=== PATIENT | female | born 1960 | race Caucasian/White ===

== ENCOUNTER 2020-05-02 13:02 | Observation (INO) | payer OTHER, SELFPAY ==
[2020-05-02] VITALS (20 sets, daily range): BP systolic 131–208; BP diastolic 72–87; PULSE 13–98; RESP 14–25; TEMP 36.5–37.3; O2SAT 83–100; BMI 49.8; BMI 51.0
--- NOTE | 2020-05-02 | PATH_ITS ---
[facility] Accession Number: [id number] . 01 Material submitted: . gallbladder - GALLBLADDER AND CONTENTS . 02 Diagnosis: Gallbladder and Contents, Cholecystectomy: Cholelithiasis with chronic active cholecystitis. No evidence of neoplasm. MRV 05/06/2020 1020 Local . 02 Electronically signed: . Ulysses May MD, PhD, Pathologist NPI- [id number] . 01 Gross description: . The specimen is received in formalin, labeled gallbladder and contents and consists of a 12.0 x 5.0 x 4.0 cm intact gallbladder with a 0.4 cm in diameter cystic duct. The serosa is andrea-pink, focally hemorrhagic and smooth. Opening reveals green viscous bile with multiple andrea-yellow irregular to multifaceted choleliths, ranging from 0.1 to 1.8 cm and measuring 6.0 x 4.0 x 2.0 cm in aggregate. Multiple choleliths are firmly lodged within the neck of the specimen, occluding the cystic duct. The mucosa is andrea-pink and ragged to granular. The wall thickness measures up to 0.6 cm. [employer] Consultant sections are submitted, to include the en face cystic duct margin (blue), body and fundus in cassette A1. ([id number]) /[facility] 05/04/2020 1656 Local . 02 Pathologist provided ICD-10: K80.01 . 02 CPT . 310672 Performed at: 01 [facility] [address] [place] [address], [place], [place] [id number] MD Everardo Raya MD Phone: [phone] Performed at: 02 [facility] [address] [place], [place] [id number] MD Elisa Phillips MD Phone: [phone]
--- NOTE | 2020-05-02 13:10 | PC.NURSE ---
Provider aware of HR.
--- NOTE | 2020-05-02 13:40 | ED_ITS ---
HPI - Abdominal Pain General Chief Complaint: Abdominal Pain Stated Complaint: Gall Bladder Attack, Nausea, Vomiting Time Seen by Provider: 05/02/20 13:20 Source: patient Mode of arrival: Wheelchair Limitations: no limitations History of Present Illness HPI narrative: 60-year-old female nonsmoker with history of hypertension and hypothyroidism presents with her significant other in the chief complaint of severe epigastric pain since yesterday afternoon. She denies any obvious provocation or palliation but states it feels quite similar to a prior exacerbation of gallbladder disease. She tried eating breakfast at about 7:00 a.m. but has had nothing to eat or drink since. She is nauseated but denies any vomiting. She has had no fever chills. MD complaint: abdominal pain Onset (ago): hour(s) Pain Consistency: constant Location: epigastric Severity: moderate Quality: cramping and aching Radiation: none Migration to: no migration Relieving factors: nothing Exacerbating factors: nothing Associated symptoms: denies other symptoms Related Data Home Medications Medication Instructions Recorded Confirmed levothyroxine 100 mcg PO QAM #0 tab 02/16/16 05/02/20 Respironics REMstar Auto CPAP #1 ea 07/30/18 02/28/20 lisinopril 20 1 tab PO DAILY 02/28/20 05/02/20 mg-hydrochlorothiazide 12.5 mg tablet Allergies Allergy/AdvReac Type Severity Reaction Status Date / Time No Known Drug Allergies Allergy Verified 05/02/20 14:43 Review of Systems Constitutional Constitutional: Denies chills, Denies fatigue, Denies fever(s), Denies frequent falls, Denies lethargy and Denies weakness Eyes Eyes: Denies change in vision, Denies eye discharge, Denies irritation and Denies loss of vision ENT Ears, Nose, Mouth, and Throat: Denies change in voice, Denies dizziness, Denies neck pain, Denies sore throat and Denies throat swelling Cardiovascular Cardiovascular: Denies chest pain, Denies irregular heart rhythm, Denies lightheadedness, Denies palpitations, Denies dyspnea, Denies dyspnea on exertion and Denies orthopnea Respiratory Respiratory: Denies cough, Denies dyspnea, Denies dyspnea on exertion and Denies wheezing Gastrointestinal Gastrointestinal: Reports abdominal pain, Denies change in bowel habits, Denies diarrhea, Reports nausea and Denies vomiting Musculoskeletal Musculoskeletal: Denies neck pain and Denies numbness Integumentary/Breasts Skin/Breast: Denies pruritus, Denies erythema, Denies rash and Denies wounds Neurologic Neurologic: Denies behavioral changes, Denies confusion, Denies dizziness, Denies frequent falls, Denies loss of vision, Denies numbness and Denies weakness Psychiatric Psychiatric: Denies anxiety, Denies behavioral changes, Denies confusion, Denies depression, Denies homicidal ideation and Denies suicidal ideation Endocrine Endocrine: Denies fatigue, Denies flushing and Denies palpitations Hematologic/Lymphatic Hematologic/Lymphatic: Denies easy bruising Allergic/Immunologic Allergic/Immunologic: Denies urticaria, Denies throat swelling and Denies wheezing Patient History Medical History (Updated 05/02/20 @ 16:07 by Ike Howell DO) Fatigue (Chronic) Hyperlipidemia (Chronic) Insomnia (Chronic) Morbid obesity with body mass index (BMI) of 50.0 to 59.9 in adult (Chronic) Obstructive sleep apnea (Chronic) Social History (Updated 08/05/18 @ 18:11 by GARTH Isabel) marital status: details: birdie Gann, lives in [place] household members: spouse lives independently: Yes caregiver/support person: No housing: house Smoking Status: Never smoker Smoking Status: Never smoker alcohol intake frequency: 0-2 drinks per day Substance Use Type: does not use Exam Narrative Exam Narrative: GENERAL: [60] year old patient appears stated age. Well- nourished, well-developed patient, in mild distress. HEAD: Atraumatic. Normocephalic. EYES: Pupils equal round and reactive. Extraocular motions intact. No scleral icterus. No injection or drainage. ENT: Nose without bleeding, purulent drainage. Throat without erythema, tonsillar hypertrophy or exudate. Airway patent. NECK: Trachea midline. Non tender CARDIOVASCULAR: Regular rate and rhythm without murmurs, gallops, or rubs. RESPIRATORY: Clear to auscultation. Breath sounds equal bilaterally. No wheezes, rales, or rhonchi. GASTROINTESTINAL: Abdomen soft, epigastric and right upper quadrant tenderness to palpation, nondistended. EXTREMITIES: No edema or joint tenderness. BACK: Nontender without deformity or crepitance. No flank tenderness. NEURO: AOx3. SKIN: No rash or erythema of visible areas Initial Vital Signs Initial Vital Signs: Vital Signs Temperature 99.2 F 05/02/20 13:17 Pulse Rate 88 05/02/20 13:17 Respiratory Rate 18 05/02/20 13:17 Blood Pressure 208/81 H 05/02/20 13:17 Pulse Oximetry 98 05/02/20 13:17 Course Orders Ordered: ED Orders 05/02/20 13:23 EKG-12 Lead Stat 05/02/20 13:46 Complete Blood Count AUTO DIFF Stat Comprehensive Metabolic Panel Stat Lipase Stat Partial Thromboplastin Time Stat Prothrombin Time INR Stat 05/02/20 13:48 US abdomen limited Stat 05/02/20 15:00 COVID19 -ED/INPAT/OR/L&D Stat Lactated Ringer's (Lactated Ringers) 1,000 mls @ 150 mls/hr IV CONT SEVERIANO Last Admin: 05/02/20 14:05 Dose: 150 mls/hr Documented by: CHAPO Piperacillin/Tazobactam/Dextrose (Zosyn) 3.375 gm in 50 mls @ 100 mls/hr IV NOW ONE Stop: 05/02/20 16:06 Last Admin: 05/02/20 16:01 Dose: 100 mls/hr Documented by: CHAPO Discontinued Medications Hydromorphone HCl (Dilaudid) 0.5 mg IV NOW ONE Stop: 05/02/20 13:51 Last Admin: 05/02/20 14:08 Dose: 0.5 mg Documented by: CHAPO Ondansetron HCl (Zofran) 4 mg IV NOW ONE Stop: 05/02/20 13:51 Last Admin: 05/02/20 14:08 Dose: 4 mg Documented by: CHAPO Pantoprazole Sodium (Protonix) 40 mg IV NOW ONE Stop: 05/02/20 13:51 Last Admin: 05/02/20 14:05 Dose: 40 mg Documented by: CHAPO Consultations Consultation #1: call to Dr. Osman after US received. Vital Signs Vital signs: Vital Signs - 8 hr 05/02/20 13:17 05/02/20 13:30 05/02/20 14:00 Temperature 99.2 F Pulse Rate 88 54 L 56 L Respiratory Rate 18 24 14 Blood Pressure 208/81 H Pulse Oximetry 98 05/02/20 14:25 05/02/20 14:30 05/02/20 15:00 Temperature Pulse Rate 50 L 49 L 51 L Respiratory Rate 24 20 21 Blood Pressure 171/77 H 165/76 H 173/76 H Pulse Oximetry 95 95 97 MDM - Abdominal Pain Lab Data Result diagrams: 05/02/20 13:46 05/02/20 13:46 Labs: Lab Results 05/02/20 05/02/20 05/02/20 Range/Units 13:46 13:46 13:46 WBC 13.3 H (4.5-11.0) X10^3/uL RBC 5.10 (4.0-5.2) X10^6/uL Hgb 13.8 (12.0-16.0) g/dL Hct 42.6 (36-46) % MCV 83.5 (80-100) fL MCH 27.1 (26-34) PG MCHC 32.5 (30-36) % RDW 14.9 H (11.6-14.8) % Plt Count 245 (150-400) X10^3/uL Neut % (Auto) 84.6 H (50-75) % Lymph % (Auto) 8.1 L (25-40) % Green % (Auto) 6.5 (3-14) % Eos % (Auto) 0.2 L (2-4) % Baso % (Auto) 0.6 (0-2) % Neut # (Auto) 90424 H (5968-8845) /uL Lymph # (Auto) 1100 (5690-3014) /uL Green # (Auto) 900 (0-900) /uL Eos # (Auto) 0 (0-450) /uL Baso # (Auto) 100 (0-100) /uL PT 12.2 (10.1-12.7) SECONDS INR 1.1 (0.9-1.3) APTT 31 (26.4-36.2) SECONDS Sodium 134 L (137-145) mmol/L Potassium 4.1 (3.4-5.1) mmol/L Chloride 98 (98-107) mmol/L Carbon Dioxide 33 H (22-32) mmol/L BUN 16 (7-17) mg/dL Creatinine 0.57 (0.52-1.04) mg/dL Estimated GFR > 60.0 (>60) mL/min BUN/Creatinine Ratio 28.1 H (6-22) Glucose 135 H (80-110) mg/dL Calcium 9.6 (8.4-10.2) mg/dL Total Bilirubin 0.7 (0.2-1.3) mg/dL AST 27 (14-36) IU/L ALT 18 (<35) IU/L Alkaline Phosphatase 84 (38-126) U/L Total Protein 6.9 (6.3-8.2) g/dL Albumin 3.9 (3.5-5.0) g/dL Globulin 3.0 (1.7-4.1) g/dL Albumin/Globulin Ratio 1.3 (1.0-2.8) Lipase 39 (23-300) U/L Imaging Data US - abdomen: Radiologist's Impression: Chart Viewer Diagnostics DATE TYPE STATUS REF RANGE/AUTHOR Hx 05/02/20 13:48 Josemanuel Zaidi Nury Yoo 60, F0 1960 [facility], [facility] ED R08 162.56cm 131.542kg BMI: 49.8kg/m? Abdominal Pain Search Chart No Data to Display NF - Not included in interaction checking ONSET Today 14:30 Nury Yoo 60 F 1960 [place] [address] Ultrasound Report Signed Patient: Nury Yoo#: [id number] : 9Acct:[id number] Age/Sex: 60 / FDate of Service: 05/02/20 Loc: ED Accession Number: [id number] Procedure: US abdomen limited Ordering Provider: Ike Howell D.O. PROCEDURE: US ABDOMEN LIMITED INDICATIONS: EPIGASTRIC PAIN. HISTORY OF GALLBLADDER ISSUES. TECHNIQUE: Real-time focused scanning was performed of the abdomen, with image documentation. COMPARISON: None. FINDINGS: The liver demonstrates prominent size. The liver demonstrates generalized increased echogenicity. This decreases ultrasound sensitivity for detection of hepatic masses. Numerous nonmobile gallstones are seen within the gallbladder neck. The gal lbladder wall is prominently thickened at 12 mm. Pericholecystic fluid is seen. Sonographic Bell sign is positive. There is no biliary dilatation, the common bile duct measures 6 mm. No significant pancreatic abnormality is seen on these images. IMPRESSION: Cholecystitis until proven otherwise, with gallstones, gallbladder wall thickening, pericholecystic fluid, and a positive sonographic Bell sign. Fatty liver infiltration noted. Dictated by: Josemanuel Zaidi M.D. on 05/02/2020 at 13:33 Approved by: Josemanuel Zaidi M.D. on 05/02/2020 at 13:34 Discharge Plan Departure Patient Disposition: Admitted as Observation Clinical Impression: Acute cholecystitis Prescriptions: No Action lisinopril-hydrochlorothiazide 20-12.5 mg tablet 1 tab PO DAILY RF: 0 levothyroxine 100 MCG tablet 100 mcg PO QAM Qty: 0 RF: 0 (DME) Respironics REMstar Auto CPAP Qty: 1 RF: 0
--- NOTE | 2020-05-02 13:48 | DI.US.S_ITS ---
PROCEDURE: US ABDOMEN LIMITED INDICATIONS: EPIGASTRIC PAIN. HISTORY OF GALLBLADDER ISSUES. TECHNIQUE: Real-time focused scanning was performed of the abdomen, with image documentation. COMPARISON: None. FINDINGS: The liver demonstrates prominent size. The liver demonstrates generalized increased echogenicity. This decreases ultrasound sensitivity for detection of hepatic masses. Numerous nonmobile gallstones are seen within the gallbladder neck. The gallbladder wall is prominently thickened at 12 mm. Pericholecystic fluid is seen. Sonographic Bell sign is positive. There is no biliary dilatation, the common bile duct measures 6 mm. No significant pancreatic abnormality is seen on these images. IMPRESSION: Cholecystitis until proven otherwise, with gallstones, gallbladder wall thickening, pericholecystic fluid, and a positive sonographic Bell sign. Fatty liver infiltration noted. Dictated by: Josemanuel Zaidi M.D. on 05/02/2020 at 13:33 Approved by: Josemanuel Zaidi M.D. on 05/02/2020 at 13:34
[2020-05-02 13:54] LABS: Add Manual Diff / Slide Review NO; Basophils Absolute Auto 100 /uL (0-100); Basophils Percent Auto 0.6 % (0-2); Eosinophils Absolute Auto 0 /uL (0-450); Eosinophils Percent Auto 0.2 % (2-4); Hematocrit 42.6 % (36-46); Hemoglobin 13.8 g/dL (12.0-16.0); Lymphocytes Absolute Auto 1100 /uL (1100-4500); Lymphocytes Percent Auto 8.1 % (25-40); Mean Corpuscular HGB Conc 32.5 % (30-36); Mean Corpuscular Hemoglobin 27.1 PG (26-34); Mean Corpuscular Volume 83.5 fL (80-100); Monocytes Absolute Auto 900 /uL (0-900); Monocytes Percent Auto 6.5 % (3-14); Neutrophils Absolute Auto 11300 /uL (1500-7000); Neutrophils Percent Auto 84.6 % (50-75); Platelet Count 245 X10^3/uL (150-400); Red Cell Distribution Width 14.9 % (11.6-14.8); White Blood Cell Count 13.3 X10^3/uL (4.5-11.0)
[2020-05-02 14:01] LABS: INR 1.1 (0.9-1.3); Prothrombin Time 12.2 SECONDS (10.1-12.7)
[2020-05-02 14:03] LABS: PTT Partial Thromboplastin Tim 31 SECONDS (26.4-36.2)
[2020-05-02 14:05] LABS: Alanine Aminotransferase 18 IU/L (<35); Albumin 3.9 g/dL (3.5-5.0); Albumin Globulin Ratio 1.3 (1.0-2.8); Alkaline Phosphatase 84 U/L (38-126); Aspartate Aminotransferase 27 IU/L (14-36); BUN Creatinine Ratio 28.1 (6-22); Bilirubin Total 0.7 mg/dL (0.2-1.3); Blood Urea Nitrogen 16 mg/dL (7-17); Calcium 9.6 mg/dL (8.4-10.2); Carbon Dioxide 33 mmol/L (22-32); Chloride 98 mmol/L (98-107); Estimated Glomerular Filt Rate > 60.0 mL/min (>60); Glucose 135 mg/dL (80-110); HEMOLYSIS 36 (0-50); Lipase 39 U/L (23-300); Potassium 4.1 mmol/L (3.4-5.1); Sodium 134 mmol/L (137-145); Total Protein 6.9 g/dL (6.3-8.2)
[2020-05-02] MEDS: PANTOPRAZOLE 40 MG VIAL IV (14:05)
[2020-05-02] MEDS: LACTATED RINGERS 1,000 ML 150 ML IV (14:05)
[2020-05-02] MEDS: ONDANSETRON 4 MG/2 ML INJ IV (14:08)
[2020-05-02] MEDS: HYDROMORPHONE 0.5 MG INJ IV (14:08)
--- NOTE | 2020-05-02 15:34 | PC.NURSE ---
patient provided warm blankets. Thanked staff. Denies other needs at this time.
[2020-05-02] MEDS: PIPERACILLIN-TAZO 3.375 GM/50 ML FROZ.PIGGY IV ×2 (16:01→23:45)
[2020-05-02 16:06] LABS: COVID19 -Nasal RAPID Negative (Negative)
[2020-05-02] MEDS: LACTATED RINGERS 1,000 ML 42 ML IV ×2 (19:15→20:54)
--- NOTE | 2020-05-02 19:17 | PM.HP.1 ---
History of Present Illness History of Present Illness Date Patient Seen: 05/02/20 Time Patient Seen: 19:00 Chief complaint: Gall Bladder Attack, Nausea, Vomiting Narrative: The patient is a woman who is been having intermittent epigastric and right upper quadrant pain with nausea. She developed pain yesterday in its persistent through the day to today. It was accompanied by nausea and vomiting. Pain is not been this severe before. When she was seen at [facility] room a cardiac evaluations apparently conducted and was their feeling it was her gallbladder. She did not do anything about the gallbladder issue due to today. Patient History Medical History (Updated 05/02/20 @ 19:25 by Ernie Osman MD) Fatigue (Chronic) Hyperlipidemia (Chronic) Hypertension (Acute) Hypothyroidism (Acute) Insomnia (Chronic) Morbid obesity with body mass index (BMI) of 50.0 to 59.9 in adult (Chronic) Obstructive sleep apnea (Chronic) Surgical History (Updated 05/02/20 @ 19:20 by Ernie Osman MD) History of (Acute) Status post hysterectomy (Acute) Status post umbilical hernia repair, follow-up exam (Acute) Family & Social History Social History: household members spouse Prior Living Arrangements House lives independently Yes caregiver/support person No Safety & Behavioral: Feels Safe in Current Yes Environment Been Physically Hurt or No Threatened By a Person Suicidal Ideation Description None Suicide Plan Description No Plan Tobacco & Substance use: Smoking Status Never smoker alcohol intake frequency 0-2 drinks per day Substance Use Type does not use Meds Home Medications and Allergies Home Medications Medication Instructions Recorded Confirmed Type levothyroxine 100 mcg PO QAM #0 tab 02/16/16 05/02/20 History lisinopril 20 1 tab PO DAILY 02/28/20 05/02/20 History mg-hydrochlorothiazide 12.5 mg tablet Allergies Allergy/AdvReac Type Severity Reaction Status Date / Time No Known Drug Allergies Allergy Verified 05/02/20 14:43 Review of Systems Review of Systems Narrative: Patient denies any visual difficulties cough cold or asthma. No heart problems that she is aware of a murmurs. She has some problem with pain in her right ankle but otherwise no arthritis. She denies any black or bloody bowel movements. No seizures or blackouts. No history kidney stones or blood in her urine. Exam Vital Signs (past 8 hours): - 05/02/20 13:17 05/02/20 13:30 05/02/20 14:00 Temperature 99.2 F Pulse Rate 88 54 L 56 L Respiratory Rate 18 24 14 Blood Pressure 208/81 H Pulse Oximetry 98 05/02/20 14:25 05/02/20 14:30 05/02/20 15:00 Temperature Pulse Rate 50 L 49 L 51 L Respiratory Rate 24 20 21 Blood Pressure 171/77 H 165/76 H 173/76 H Pulse Oximetry 95 95 97 05/02/20 15:30 05/02/20 15:31 05/02/20 16:00 Temperature Pulse Rate 50 L 54 L 53 L Respiratory Rate 20 24 21 Blood Pressure 194/87 H 169/77 H Pulse Oximetry 96 95 95 05/02/20 17:37 05/02/20 19:05 Temperature 97.7 F 98.4 F Pulse Rate 52 L 53 L Respiratory Rate 20 22 Blood Pressure 150/76 H 168/73 H Pulse Oximetry 95 98 Oxygen Delivery Method Room Air Narrative Exam Narrative: Pleasant cooperative woman in no apparent distress. Eyes are nonicteric. Pupils equal round reactive to light. Conjunctiva pink. Oral mucosa is a bit dry no open lesions no splits her lips. Her neck is supple no nodes in the neck supraclavicular areas. No bruits in the neck lungs are clear to auscultation no rales or rhonchi equal percussion heart distant tones regular rate and rhythm. I do not hear a murmur gallop. Abdomen is morbidly protuberant soft nontender. Difficult to tell if there any masses or organ enlargement. She is alert and oriented x3. Speech rate and content are appropriate. Affect is appropriate. Objective Labs Result Diagrams: 05/02/20 13:46 05/02/20 13:46 Labs: Laboratory Results - last 24 hr 05/02/20 05/02/20 05/02/20 13:46 13:46 13:46 WBC 13.3 H RBC 5.10 Hgb 13.8 Hct 42.6 MCV 83.5 MCH 27.1 MCHC 32.5 RDW 14.9 H Plt Count 245 Neut % (Auto) 84.6 H Lymph % (Auto) 8.1 L Clayton % (Auto) 6.5 Eos % (Auto) 0.2 L Baso % (Auto) 0.6 Neut # (Auto) 52527 H Lymph # (Auto) 1100 Clayton # (Auto) 900 Eos # (Auto) 0 Baso # (Auto) 100 PT 12.2 INR 1.1 APTT 31 Sodium 134 L Potassium 4.1 Chloride 98 Carbon Dioxide 33 H BUN 16 Creatinine 0.57 Estimated GFR > 60.0 BUN/Creatinine Ratio 28.1 H Glucose 135 H Calcium 9.6 Total Bilirubin 0.7 AST 27 ALT 18 Alkaline Phosphatase 84 Total Protein 6.9 Albumin 3.9 Globulin 3.0 Albumin/Globulin Ratio 1.3 Lipase 39 COVID-19 PCR 05/02/20 15:00 WBC RBC Hgb Hct MCV MCH MCHC RDW Plt Count Neut % (Auto) Lymph % (Auto) Clayton % (Auto) Eos % (Auto) Baso % (Auto) Neut # (Auto) Lymph # (Auto) Clayton # (Auto) Eos # (Auto) Baso # (Auto) PT INR APTT Sodium Potassium Chloride Carbon Dioxide BUN Creatinine Estimated GFR BUN/Creatinine Ratio Glucose Calcium Total Bilirubin AST ALT Alkaline Phosphatase Total Protein Albumin Globulin Albumin/Globulin Ratio Lipase COVID-19 PCR Negative Assessment & Plan Assessment and plan (1) Acute cholecystitis: Problem details: Laparoscopic cholecystectomy and indicated procedures. I have discussed the procedure in rationale with her and her . Risks of bleeding infection hernia injury to internal organs or ducts which would require major operation repair and by leakage all discussed with her. Status: Acute (2) Morbid obesity with body mass index (BMI) of 50.0 to 59.9 in adult: Problem details: This will make her operation much more difficult in make her recovery more difficulty Status: Chronic (3) Obstructive sleep apnea: Problem details: I have asked her to try to get the CPAP she uses while were operating. Status: Chronic (4) Hyperlipidemia: Problem details: Will continue her meds Status: Chronic (5) Hypertension: Problem details: Will continue her meds Status: Acute (6) Hypothyroidism: Problem details: Will continue her meds Status: Acute
[2020-05-02] MEDS: CEFOTETAN 2 GM/50 ML PIGGYBACK IV (19:20)
--- NOTE | 2020-05-02 19:29 | PM.PREOP ---
Pre-operative Note COVID-19 COVID-19 status: Negative Result date/Date tested (Pos, Neg/Pending): 05/02/20 Interval Note History & Physical reviewed/Exam performed by Physician: Yes Changes to H&P: No
--- NOTE | 2020-05-02 19:52 | SUR.OPER ---
Supine on padded OR bed, head on pillow, safety belt at thigh. Both arms secured on padded arm boards <90 degrees abduction. Legs uncrossed. Padded footboard in place. Tape over blanket to secure lower legs.
[2020-05-02] MEDS: BUPIVACAINE 0.5% (PF) VIAL 30 ML INJ (19:58)
--- NOTE | 2020-05-02 22:08 | PM.OP.1 ---
Operative Date/Time/Diagnoses Date of procedure: 05/02/20 Time of procedure: 22:00 Pre-op diagnosis: Acute cholecystitis with cholelithiasis and probable hydrops based on ultrasound report Post-op diagnosis: same (Marked edema of the gallbladder wall with what appeared to be the beginning of necrosis. Hydrops was present.) Procedure & Clinicians Procedure: Laparoscopic cholecystectomy Same procedure as scheduled: Yes Indications: Severe upper abdominal pain with nausea vomiting and ultrasound showing marked thickening with gallbladder wall with stones obstructing the outlet of the gallbladder in marked dilatation of the gallbladder Surgeon: Ernie Osman Click Yes if Unassisted: Yes Anesthesia Type: General Operative Notes Findings: Markedly dilated thickened edematous gallbladder appear to be beginning to necrosis. Closure Type: primary Specimen(s): other (Gallbladder and contents) Prosthetic devices, grafts, tissues, transplants, or devices: None Applied: drain(s) (7 mm Jung-Kaminski placed in the gallbladder fossa) Estimated Blood Loss (mL): 150 Blood products transfused: none Procedure in detail: The patient was placed supine on the operating room table and underwent general endotracheal anesthesia. The patient was prepped and draped in the usual fashion. Local anesthetic was infiltrated well above the umbilicus and linear incision made and carried down through fascia into the peritoneal cavity. Stay sutures of 0 Vicryl were placed in the fascia. A 12 mm port was placed. The abdomen was insufflated. The patient was repositioned. Local anesthetic was infiltrated in 3 areas under the right costal margin and 3 small incisions made followed by placing 3 5 mm ports under direct laparoscopic camera vision internally. The gallbladder was a markedly distended thick it structure. It was encased in omentum. The omentum was bluntly taken down as well as using cautery and leilani. The gallbladder wall was exposed but I could not grasp it well so a needle was inserted into the gallbladder and it was aspirated. The bile had the appearance of early hydrops. All the gallbladder Was grasped and elevated. Was quite elongated. Dissection was begun near its end. These entirely blunt dissection using Octavia dissector and the suction home comfort advisor tip. I was able to identify a structure that I was convinced was the cystic duct as it was a singular structure going directly to the end of the gallbladder. I it from surrounding structures and also identified multiple vascular appearing structures. I believe that the artery was probably adjacent and attached to the cystic duct but the structures were so fused to I felt it would be dangerous to try to separate them. The combination a however was a very thickened structure and I decided the best way to handle it would probably to be a place a loop on it. That way contrast could trouble both the cystic duct and the artery. I then therefore turned my attention to the top of the gallbladder using a Harmonic scalpel I dissected the gallbladder from its bed in the liver. Portions of the wall appeared to be undergoing early necrosis. Ultimately I dissected down and divided any of the small vascular structures I had identified earlier using the Harmonic scalpel. Bleeding was well controlled at this point. When I only had what was probably the cystic duct and artery tethering the gallbladder to the patient I placed a loop at the junction with the cystic duct and gallbladder. This was cinched down and using Harmonic scalpel beyond it I divided the gallbladder placed in a bag and removed it through the mid upper abdominal port site. There was no spillage either during the operation or with removal of the gallbladder. The operation had been quite difficult lasting at least twice as long as a normal cholecystectomy due to the patient's size and the amount of inflammation present. I placed a Jung-Kaminski drain in the gallbladder fossa and brought it out through the lateral-most port. it was secured with a 3 0 nylon.. the port sites were all irrigated. The stay sutures in the midline incision were elevated. A 2 0 PDS suture was placed between them. The Vicryl and PDS sutures were then tied. The subcu in the largest incision was closed with interrupted 4 0 Vicryl. The skin in all areas was closed with interrupted or running 4 0 Vicryl subcuticular stitches. Steri-Strips and Mastisol were applied. Band-Aids were placed and the patient was awakened, extubated and taken to the recovery area in good condition. Complications: none Post-operative Condition: stable Disposition: PACU Plan for aftercare: Admit
--- NOTE | 2020-05-02 22:09 | SUR.PHASEI ---
Stable PACU stay, Dr. Osman spoke with pt, report called, RN unavailable, to call back.
--- NOTE | 2020-05-02 22:25 | SUR.PHASEI ---
Report called, pt transported up on 2/l nasal cannula 02.
--- NOTE | 2020-05-02 22:36 | SUR.PHASEI ---
Pt left in room 213 with RN and SHOE REPAIRMAN, pt left in stable condition, bandaids x 3 and drain dressing c/d/i. Bed low, locked and scd's on.
[2020-05-02] MEDS: HYDROMORPHONE 1 MG INJ IV (23:40)
[2020-05-02] MEDS: LACTATED RINGERS 1,000 ML 125 ML IV (23:42)
[2020-05-03] VITALS (17 sets, daily range): BP systolic 102–131; BP diastolic 49–72; PULSE 55–70; RESP 16–20; TEMP 36.2–37.1; O2SAT 2–99
[2020-05-03] MEDS: HYDROMORPHONE 1 MG INJ IV (04:22)
[2020-05-03] MEDS: PIPERACILLIN-TAZO 3.375 GM/50 ML FROZ.PIGGY IV ×4 (05:35→22:26)
[2020-05-03] MEDS: LEVOTHYROXINE 100 MCG TABLET PO (05:35)
[2020-05-03 05:38] LABS: Add Manual Diff / Slide Review NO; Basophils Absolute Auto 0 /uL (0-100); Basophils Percent Auto 0.1 % (0-2); Eosinophils Absolute Auto 0 /uL (0-450); Hematocrit 40.7 % (36-46); Hemoglobin 13.3 g/dL (12.0-16.0); Lymphocytes Absolute Auto 800 /uL (1100-4500); Lymphocytes Percent Auto 5.2 % (25-40); Mean Corpuscular HGB Conc 32.8 % (30-36); Mean Corpuscular Hemoglobin 27.5 PG (26-34); Mean Corpuscular Volume 83.7 fL (80-100); Monocytes Absolute Auto 1100 /uL (0-900); Monocytes Percent Auto 7.1 % (3-14); Neutrophils Absolute Auto 14100 /uL (1500-7000); Neutrophils Percent Auto 87.6 % (50-75); Platelet Count 225 X10^3/uL (150-400); Red Blood Cell Count 4.86 X10^6/uL (4.0-5.2); Red Cell Distribution Width 15.2 % (11.6-14.8); White Blood Cell Count 16.1 X10^3/uL (4.5-11.0)
[2020-05-03 05:46] LABS: Alanine Aminotransferase 41 IU/L (<35); Albumin 3.3 g/dL (3.5-5.0); Albumin Globulin Ratio 1.1 (1.0-2.8); Alkaline Phosphatase 68 U/L (38-126); Aspartate Aminotransferase 60 IU/L (14-36); BUN Creatinine Ratio 18.4 (6-22); Bilirubin Total 0.8 mg/dL (0.2-1.3); Blood Urea Nitrogen 14 mg/dL (7-17); Calcium 8.9 mg/dL (8.4-10.2); Carbon Dioxide 32 mmol/L (22-32); Chloride 98 mmol/L (98-107); Estimated Glomerular Filt Rate > 60.0 mL/min (>60); Glucose 168 mg/dL (80-110); HEMOLYSIS < 15 (0-50); Potassium 3.8 mmol/L (3.4-5.1); Sodium 132 mmol/L (137-145); Total Protein 6.3 g/dL (6.3-8.2)
--- NOTE | 2020-05-03 05:48 | PC.NURSE ---
Pt is A and O x 4, VSS. Voiding 650 mLs dark yellow urine, odiferous. Tolerating IVF and ABOs well. Rates pain 8/10 but symptomatic. Good relief from 1 mg IVP dilaudid. LS diminished, HRR. Lap sites and incisions c/d/i. Ben drain 20 mLs serosanguinous fluid. Pt using FWW and SBA x 1. Spouse in room.
[2020-05-03] MEDS: ENOXAPARIN 40 MG/0.4 ML SYRINGE SUBCUT ×2 (08:49→20:27)
[2020-05-03] MEDS: lisinopriL 20 MG TABLET PO (08:51)
[2020-05-03] MEDS: hydroCHLOROthiazide 12.5 MG CAPSULE PO (08:51)
[2020-05-03] MEDS: SENNOSIDES 8.6 MG TABLET 17.2 MG PO (08:52)
[2020-05-03] MEDS: GABAPENTIN 300 MG CAPSULE PO ×2 (08:53→20:27)
[2020-05-03] MEDS: KETOROLAC 30 MG/ML VIAL IV ×2 (09:55→16:00)
--- NOTE | 2020-05-03 15:09 | CM.DANOTE ---
Discharge Planning/Care Management Case received, EMR reviewed. Discussed in Team Rounds. PT is a 60 year old female who admitted yesterday afternoon to care of [facility]: Dr. Osman. Payer: Francois Pt was taken urgently to the OR last night for laproscopic cholecystectomy. Drain in place today. DCP team will be following to check in with pt and assist with any d/c needs that may arise. Pt lives with her in [place]. Admission status: OBS: confirmed by UR CAROLE Mcgee. CM Discharge Assessment Start: 05/03/20 15:08 Freq: Status: Active Protocol: Document 05/03/20 15:09 ITV (Rec: 05/03/20 15:09 ITV [id number]) Discharge Planning Assessment Advance Directives? No History Provided By Medical Record Prior Living Arrangements House Household Members spouse Independent with ADL's Yes Is patient alert and oriented? Yes Review Status In Process
[2020-05-03] MEDS: ONDANSETRON 4 MG/2 ML INJ IV (16:00)
--- NOTE | 2020-05-03 20:04 | PM.PNPO.1 ---
Subjective Subjective Date Patient Seen: 05/03/20 Time Patient Seen: 20:04 Interval history: Patient seen earlier and again tonight. Feeling better. Passsing flatus. Had 2 bowel movements. pain improving. Has been walking to the bathroom Exam Vital Signs (past 8 hours): - 05/03/20 14:15 05/03/20 15:49 05/03/20 16:00 Temperature 98.7 F Pulse Rate 59 L 65 Respiratory Rate 16 20 Blood Pressure 122/67 Pulse Oximetry 95 99 99 05/03/20 19:09 05/03/20 19:10 Temperature 97.2 F L Pulse Rate 67 62 Respiratory Rate 18 20 Blood Pressure 131/69 Pulse Oximetry 97 96 Oxygen Delivery Method Room Air,CPAP Oxygen Flow Rate 0 Narrative Exam Narrative: lungs clear. Abdomen soft. dressings dry. Drainage serosanguinous. Objective Labs Result Diagrams: 05/03/20 04:40 05/03/20 04:40 Labs: Laboratory Results - last 24 hr 05/03/20 05/03/20 04:40 04:40 WBC 16.1 H RBC 4.86 Hgb 13.3 Hct 40.7 MCV 83.7 MCH 27.5 MCHC 32.8 RDW 15.2 H Plt Count 225 Neut % (Auto) 87.6 H Lymph % (Auto) 5.2 L [place] % (Auto) 7.1 Eos % (Auto) 0.0 L Baso % (Auto) 0.1 Neut # (Auto) 43025 H Lymph # (Auto) 800 L [place] # (Auto) 1100 H Eos # (Auto) 0 Baso # (Auto) 0 Sodium 132 L Potassium 3.8 Chloride 98 Carbon Dioxide 32 BUN 14 Creatinine 0.76 Estimated GFR > 60.0 BUN/Creatinine Ratio 18.4 Glucose 168 H Calcium 8.9 Total Bilirubin 0.8 AST 60 H ALT 41 H Alkaline Phosphatase 68 Total Protein 6.3 Albumin 3.3 L Globulin 3.0 Albumin/Globulin Ratio 1.1 Assessment & Plan Post-op Postoperative Procedures: Procedures Operation Date: 05/02/20 17:30 Actual Procedures Side Surgeon p Laparoscopic Cholecystectomy Ernie Osman MD Postoperative day: 1 Postoperative status: doing well Postoperative plan narrative: wbc up as expected. other labs OK. VS OK. getting DVT prophylaxis. ambulate more. check labs in am. possible discharge tomorrow.
[2020-05-03] MEDS: OXYCODONE/ACETAMINOPHEN 5/325 TABLET 2 TAB PO (20:47)
[2020-05-03] MEDS: LACTATED RINGERS 1,000 ML 125 ML IV (22:23)
[2020-05-04] MEDS: PIPERACILLIN-TAZO 3.375 GM/50 ML FROZ.PIGGY IV ×2 (04:43→11:53)
[2020-05-04 04:54] VITALS: BP 112/60; PULSE 72; RESP 16; TEMP 36.2; O2SAT 92
[2020-05-04] MEDS: LEVOTHYROXINE 100 MCG TABLET PO (06:11)
[2020-05-04] MEDS: OXYCODONE/ACETAMINOPHEN 5/325 TABLET 2 TAB PO ×2 (06:56→15:42)
[2020-05-04 07:30] VITALS: O2SAT 93
[2020-05-04 08:00] VITALS: BP 108/61; PULSE 80; RESP 17; TEMP 37.6; O2SAT 93
[2020-05-04] MEDS: ENOXAPARIN 40 MG/0.4 ML SYRINGE SUBCUT (08:46)
[2020-05-04] MEDS: lisinopriL 20 MG TABLET PO (08:46)
[2020-05-04] MEDS: SENNOSIDES 8.6 MG TABLET 17.2 MG PO (08:46)
[2020-05-04] MEDS: SODIUM CHLORIDE 0.9% FLUSH 10 ML IV (08:47)
[2020-05-04] MEDS: hydroCHLOROthiazide 12.5 MG CAPSULE PO (08:47)
[2020-05-04] MEDS: GABAPENTIN 300 MG CAPSULE PO (08:47)
[2020-05-04 08:59] LABS: Add Manual Diff / Slide Review NO; Basophils Absolute Auto 100 /uL (0-100); Basophils Percent Auto 0.5 % (0-2); Eosinophils Absolute Auto 100 /uL (0-450); Eosinophils Percent Auto 0.5 % (2-4); Hematocrit 38.7 % (36-46); Hemoglobin 12.6 g/dL (12.0-16.0); Lymphocytes Absolute Auto 1000 /uL (1100-4500); Lymphocytes Percent Auto 8.4 % (25-40); Mean Corpuscular HGB Conc 32.5 % (30-36); Mean Corpuscular Hemoglobin 27.6 PG (26-34); Monocytes Absolute Auto 1200 /uL (0-900); Monocytes Percent Auto 9.7 % (3-14); Neutrophils Absolute Auto 9700 /uL (1500-7000); Neutrophils Percent Auto 80.9 % (50-75); Platelet Count 200 X10^3/uL (150-400); Red Blood Cell Count 4.55 X10^6/uL (4.0-5.2); Red Cell Distribution Width 15.4 % (11.6-14.8)
[2020-05-04 09:10] LABS: Alanine Aminotransferase 29 IU/L (<35); Albumin 3.1 g/dL (3.5-5.0); Albumin Globulin Ratio 1.1 (1.0-2.8); Alkaline Phosphatase 79 U/L (38-126); Aspartate Aminotransferase 28 IU/L (14-36); BUN Creatinine Ratio 24.4 (6-22); Blood Urea Nitrogen 21 mg/dL (7-17); Calcium 8.1 mg/dL (8.4-10.2); Carbon Dioxide 33 mmol/L (22-32); Chloride 96 mmol/L (98-107); Estimated Glomerular Filt Rate > 60.0 mL/min (>60); Globulin 2.8 g/dL (1.7-4.1); Glucose 142 mg/dL (80-110); HEMOLYSIS < 15 (0-50); Potassium 3.4 mmol/L (3.4-5.1); Sodium 131 mmol/L (137-145); Total Protein 5.9 g/dL (6.3-8.2)
--- NOTE | 2020-05-04 09:25 | PT.IIE ---
Current Diagnoses Hypothyroidism, unspecified (05/02/20) Morbid (severe) obesity due to excess calories (05/02/20) Hyperlipidemia, unspecified (05/02/20) Obstructive sleep apnea (adult) (pediatric) (05/02/20) Essential (primary) hypertension (05/02/20) Acute cholecystitis (05/02/20) Body mass index [BMI] 50.0-59.9, adult (05/02/20) Surgery Performed Operation Date: 05/02/20 17:30 Actual Procedures p Laparoscopic Cholecystectomy - Ernie Osman MD Surgical History (Last Updated 05/02/20 @ 19:20 by Ernie Osman MD) History of (Acute) Status post hysterectomy (Acute) Status post umbilical hernia repair, follow-up exam (Acute) Medical History (Last Updated 05/02/20 @ 19:24 by Ernie Osman MD) Fatigue (Chronic) Hyperlipidemia (Chronic) Hypertension (Acute) Hypothyroidism (Acute) Insomnia (Chronic) Morbid obesity with body mass index (BMI) of 50.0 to 59.9 in adult (Chronic) Obstructive sleep apnea (Chronic) Physical Therapy Inpatient Evaluation/Re-Eval M1 PT/OT-IP Prior Functional Status Start: 05/04/20 11:56 Freq: NEEDED Status: Active Protocol: Document 05/04/20 09:25 AB (Rec: 05/04/20 12:10 [email or web address]) Medical Review Prior Functional Status Medical History Reviewed Yes Communication able to make needs known Mobility and Gait pt stated that she is independent with all mobilities and ambulation without AD Social History Household Members spouse Living Arrangements House Number of Floors (Floors) Two Floors Number of Stairs To Enter/Railing? 2 steps to enter without rails 7 steps to get to main level of the house with bilateral rails Home Environment High Toilet Home Equipment Shower Seat with Backrest,Hand Held Shower M2 PT-IP Current Condition Start: 05/04/20 11:56 Freq: NEEDED Status: Active Protocol: Document 05/04/20 09:25 AB (Rec: 05/04/20 12:10 AB [email or web address]) Physical Therapy Current Condition Current Condition Evaluation Date 05/04/20 Treatment Diagnosis acute cholecystitis s/p laparoscopic cholecystectomy; difficulty in walking Onset Date 05/02/20 Precautions Abdominal Surgery Precautions Log Roll,Lifting Restrictions, Gait Belt above Incisional Area M3 PT-IP Subjective Start: 05/04/20 11:56 Freq: NEEDED Status: Active Protocol: Document 05/04/20 09:25 AB (Rec: 05/04/20 12:10 AB [email or web address]) Subjective Physical Therapy Visit Type Type Initial Evaluation Visit Start Time 09:25 Visit Stop Time 09:54 Total Visit Minutes 29 Number of BEZEL CUTTER Visits 0 Physical Therapy Visit Comments Patient Comments pt is agreeable to do PT Therapy Pain Assessment Pain When Pain Assessed During Mobility Pain Present Pain Present Pain Reported Location Upper Medial Abdomen Scale Used scale not stated M4 PT-IP Mobility and Gait Start: 05/04/20 11:56 Freq: NEEDED Status: Active Protocol: Document 05/04/20 09:25 AB (Rec: 05/04/20 12:10 AB [id number]) PT-Bed Mobility Assessment Rolling Type of Rolling Log Rolling Level of Assist Maximal Assistance Supine to Sit Supine to Sit Maximum Assistance Sit to Supine Sit to Supine Maximum Assistance PT-Transfer Assessment Sit to and From Stand Sit to and from Stand Contact Guard Assistance,1 Person Assistance,Use of Upper Extremities Equipment Transfer Assistive Device None,Gait Belt,Front Wheeled Walker Orthotic/Prosthetic Devices or Brace: No Transfers Transfer Destination Bed Transfer Technique ambulated Transfer Ability Level of Assist Standby Assistance,Contact Guard Assistance,Use of Upper Extremities Comments Mobility Comments spouse in room with pt. pt completed sit to stand CGA. ambulated in room without AD CGA with unsteady antalgic gait and slow pace. educated pt with safety and use of AD. assessed ambulation using FWW SBA SBA and pt is steadier and agreed to get a FWW. pt ambulated to the bed. educated on abdominal precautions and log roll bed mobility. pt required max A for log roll supine<>sit. pt ambulated towards the stair using FWW SBA ~ 125 ft. completed up/down steps using bilateral rails SBA. completed up/down platform step with spouse providing [employer] and completed safety with min A from spouse. pt ambulated back to her room using FWW SBA . positioned on chair. educated on sit<>stand techniques and completed with SBA. positioned pt on chair. call light and table placed within reach. Gait Assessment Gait Gait Assistance Required: Standby Assistance,Contact Guard Assist Distance (Feet) 125 Able to Maintain Weight Bearing Status Yes During Gait Assistive Devices Assistive Device None,Gait Belt,Front Wheeled Walker Orthotic/Prosthetic Devices or Brace: No Gait Deviations General Gait Pattern Antalgic,Decreased Stride Length,Decreased Feet Clearance Factors Limiting Gait Function Factors Limiting Gait Function Decreased Activity Tolerance, Decreased Strength,Pain,Poor Balance,Poor Safety Awareness Comments Gait Comments pls refer to mobility section for details Stair Climbing Assessment Evaluation Level of Assist On Stairs Standby Assistance,Minimal Assistance Devices Stair Climbing Assistive Devices Left Railing,Right Railing Technique/Endurance Stair Climbing Direction Ascend and Descend Stair Climbing Technique Step to Step Number of Steps Climbed 3 Query Text: Stair Climbing Set # Repetitions (reps) 1 Comments Stair Climbing Comments pls refer to mobility section for details PT-Balance Assessment Sitting Balance and Reactions Static Sitting Balance Ability Good Dynamic Sitting Balance Ability Good Standing Balance and Reactions Static Standing Balance Ability Fair Dynamic Standing Balance Ability Fair Device Used FWW M5 PT-IP Objective Assessments Start: 05/04/20 11:56 Freq: NEEDED Status: Active Protocol: Document 05/04/20 09:25 AB (Rec: 05/04/20 12:10 [email or web address]) Orientation Orientation/Cognition Level of Alertness Alert Orientation Name,Place,Situation Language Function Ability No Deficits Noted Safety Awareness Understands Safety Issues Memory Description No Deficits Noted Gross Range of Motion Lower Extremity ROM Assessment Within Functional Limits Strength Lower Extremity Strength Assessment Within Functional Limits Sensation Assessment Sensation Gross Sensation WNL Muscle Tone Muscle Tone WNL Yes Other Assessments Other Other Assessments pt has bilateral flat feet M6 PT-IP Treatment Start: 05/04/20 11:56 Freq: NEEDED Status: Active Protocol: Document 05/04/20 09:25 AB (Rec: 05/04/20 12:10 [email or web address]) Physical Therapy Treatment Education Education Provided Precautions,Safety Equipment Issued Equipment Type and Company educated pt and spouse regarding use of FWW at this time and agreed. wanted PT to dispense FWW. obtained order and pt signed papers and FWW dispensed to pt. Other Treatments Other Treatment Performed caregiver training with bed mobility, sit<>stand , ambulation and stair climbing M7 PT-IP Assessment and Plan Start: 05/04/20 11:56 Freq: NEEDED Status: Active Protocol: Document 05/04/20 09:25 AB (Rec: 05/04/20 12:10 [email or web address]) PT Summary Assessment and Plan Potential Rehabilitation Potential Good Status of Condition at Evaluation Stable Summary Impairments Pain,ROM,Strength,Balance, Coordination,Sensation,Tone, Cognition,Bed Mobility, Transfers,Gait,Activity Tolerance Assessment Summary pt requiring SBA with mobility using FWW. assessed ambulation without AD and requiring CGA with unsteady gait. pt requires max A with log roll bed mobility but spouse is able to assist pt. caregiver training conducted and spouse is able to assist pt safely. pt plans to go home and spouse to assist her. Goals Bed Mobility Goal Independent Transfer Goal Independent Gait Goal Independent Gait Distance 150 Other Goals up/down 2 steps wtihout rails SBA Days to Meet Goals 5 Frequency of Treatment Frequency Of Treatment Once a Day Treatment Plan Physical Therapy Treatment Plan Bed Mobility Training,Transfer Training,Gait Training, Therapeutic Exercise,Balance Retraining,Post Op Education, Discharge Planning,Hot or Cold Pack,Neuromuscular Re-ed Recommendations To Nursing Amount of Assist Needed Standby Assistance Discharge Recommendations PT Discharge Recommendations Home with Assistance Transportation Needs at Discharge Private Vehicle
[2020-05-04 11:00] VITALS: BP 101/49; PULSE 75; RESP 16; TEMP 36.6; O2SAT 93
--- NOTE | 2020-05-04 15:06 | PM.DS.1 ---
History of Present Illness History of Present Illness Chief complaint: Gall Bladder Attack, Nausea, Vomiting Narrative: The patient is a woman who is been having intermittent epigastric and right upper quadrant pain with nausea. She developed pain yesterday in its persistent through the day to today. It was accompanied by nausea and vomiting. Pain is not been this severe before. When she was seen at [facility] Emergency room a cardiac evaluations apparently conducted and was their feeling it was her gallbladder. She did not do anything about the gallbladder issue due to today. Discharge Providers Provider Date of admission: 05/02/20 16:07 Discharge Date: 05/04/20 Consults: 05/02/20 17:01 Consult to Pastoral Services Routine Comment: patient request 05/02/20 22:37 Consult to Discharge Planning Routine Comment: 05/03/20 20:08 Consult to Physical Therapy Evaluate & Treat Comment: assist ambulation Physician Instructions: Evaluate and Treat 05/04/20 10:29 Consult to Home Health Routine Comment: Reason For Exam: FWW for home use Discharge provider: Ernie Osman MD Summary Hospital Course Discharge Diagnosis: Acute cholecystitis with cholelithiasis Morbid obesity with a BMI of 51 Hypothyroidism chronic Hypertension chronic Hospital Course: Patient was taken to the operating room shortly after admission and underwent a laparoscopic cholecystectomy. This was a very difficult operation due not only to her size but also to the marked inflammation her gallbladder. It appeared portions of it were beginning to necrosis. A drain was placed which was pulled out prior to discharge. She was ambulating tolerating a diet at the time of discharge. Her pain seemed to be well controlled. She had a small wound separation when her Band-Aid was removed from her mid abdominal incision. This was closed with the Steri-Strip and Mastisol. Status at Discharge Cognitive/behavioral status at discharge: oriented Functional status at discharge: uses cane/walker (Expected to be temporary) Overall status at discharge: patient is progressing back to baseline Exam Vital Signs (past 8 hours): - 05/04/20 07:30 05/04/20 08:00 05/04/20 11:00 Temperature 99.6 F 97.9 F Pulse Rate 80 75 Respiratory Rate 17 16 Blood Pressure 108/61 101/49 L Pulse Oximetry 93 93 93 Oxygen Delivery Method Room Air Oxygen Flow Rate 0 Narrative Exam Narrative: Lungs are clear. Heart regular rate and rhythm without murmur gallop. Abdomen is protuberant soft. Wounds look fine. No sail it is. Drain was removed without difficulty. Dressing was applied. Objective Labs Result Diagrams: 05/04/20 08:50 05/04/20 08:50 Labs: Laboratory Results - last 24 hr 05/04/20 05/04/20 05/04/20 08:50 08:50 08:50 WBC 12.0 H RBC 4.55 Hgb 12.6 Hct 38.7 MCV 85.0 MCH 27.6 MCHC 32.5 RDW 15.4 H Plt Count 200 Neut % (Auto) 80.9 H Lymph % (Auto) 8.4 L [place] % (Auto) 9.7 Eos % (Auto) 0.5 L Baso % (Auto) 0.5 Neut # (Auto) 9700 H Lymph # (Auto) 1000 L [place] # (Auto) 1200 H Eos # (Auto) 100 Baso # (Auto) 100 Sodium 131 L Potassium 3.4 Chloride 96 L Carbon Dioxide 33 H BUN 21 H Creatinine 0.86 Estimated GFR > 60.0 BUN/Creatinine Ratio 24.4 H Glucose 142 H Calcium 8.1 L Total Bilirubin 1.0 AST 28 ALT 29 Alkaline Phosphatase 79 Total Protein 5.9 L Albumin 3.1 L Globulin 2.8 Albumin/Globulin Ratio 1.1 Procalcitonin 0.40 Discharge Assessment & Plan Assessment and Plan Assessment: Doing well given the degree of inflammation of her gallbladder. Discharge to follow up in the office. Instructions given as per discharge instruction sheet. Discharge Plan Discharge Plan Patient Disposition: Home Provider Discharge Comment: Your operation went well. Keep a bandage on the area where the drain was until it closes and stops draining. This should be a few days. Use a laxative if you become constipated like milk of magnesia. Discharge orders & Medications Prescriptions: New oxycodone-acetaminophen [Percocet] 5-325 mg tablet See Rx Instructions .ROUTE .COMPLEX PRN (Reason: painful procedure) Qty: 20 RF: 0 ibuprofen 600 mg tablet 600 mg PO QID PRN (Reason: pain) Qty: 20 RF: 0 Continued lisinopril-hydrochlorothiazide 20-12.5 mg tablet 1 tab PO DAILY RF: 0 levothyroxine 100 MCG tablet 100 mcg PO QAM Qty: 0 RF: 0 Follow up/Referrals: Ernie Osman MD [Physician] - 05/18/20 2:00 pm (If you need to reach a doctor please call our office. If it is after hours listen to the entire message and at the end you will be connected with the page switching operator. They will page the doctor on-call for our practice) Diet/Activity/Treatments Diet: Diet as Tolerated Activity: Do not lift over 10 lb or strain for the next 4 weeks. You may walk. Do not drive into her pain-free off medication. You may return to work when you feel able but that probably will not be for at least a week. Skin/Wound/Dressing Care Report to your healthcare provider any signs of infection, such as:: increased pain, unusual drainage and unusual redness Dressing: Change drain site dressing daily or as needed. You may shower. No pool or tub however until after I see you in the office. Visit Report/Discharge Packet Instructions: DI for Postoperative Pain, DI for Laparoscopic Cholecystectomy Visit Report Forms: Patient Portal/API, Stroke Signs & Symptoms Discharge Data Attending Provider: Ernie Osman Admdelma Date/Time: 05/02/20 16:07
== END 2020-05-04 16:28 | disposition home or self-care (01) ==
LOC: ED 16:07 → AC 16:10
PROVIDERS: Admitting Provider Specialist; Emergency Provider Emergency Medicine; Referring Provider Emergency Medicine; Visit Provider Specialist
PROC: 0FT44ZZ Resection of Gallbladder, Percutaneous Endoscopic Approach (ICD-10-PCS; CPT 47562; principal; 2020-05-02 17:30)
DX: K80.00 Calculus of gallbladder with acute cholecystitis without obstruction (principal); R10.13 Epigastric pain; E66.01 Morbid (severe) obesity due to excess calories; Z68.43 Body mass index [BMI] 50.0-59.9, adult; G47.33 Obstructive sleep apnea (adult) (pediatric); E78.5 Hyperlipidemia, unspecified; I10 Essential (primary) hypertension; E03.9 Hypothyroidism, unspecified; Z11.59 Encounter for screening for other viral diseases; K82.1 Hydrops of gallbladder
CPT/HCPCS: 47562; 36415; 36592; 76705; 80053; 83690; 84145; 85025; 85610; 85730; 87635; 93005; 93010; 94760; 94762; 96361; 96365; 96366; 96372; 96375; 96376; 97161; 99219; 99284; G0378; C9113; J1170; J1650; J1885; J2405; J2543; J3010

== ENCOUNTER → 2024-10-20 14:53 | Outpatient (CLI) | payer OTHER, SELFPAY ==
[2020-11-24 16:17] VITALS: BMI 49.8
[2024-10-20 15:22] LABS: Estimated Glomerular Filt Rate > 60 mL/min (>60)
--- NOTE | 2024-10-20 15:41 | DI.CT.S_ITS ---
PROCEDURE: CT SOFT TISSUE NECK W CON INDICATIONS: THROAT PROBLEMS TECHNIQUE: After the administration of intravenous contrast, 3.0 mm axial sections acquired from the sella to the aortic arch. Additional oblique axial 3.0 mm sections acquired through the pharynx. 3 mm thick coronal and sagittal reformats were generated. For radiation dose reduction, the following was used: automated exposure control. COMPARISON: None. FINDINGS: Image quality: Excellent. Lymph nodes: No enlarged lymph nodes seen throughout the neck. Vessels: Visualized vasculature appears patent. Atherosclerotic vascular calcifications. Neck spaces: The oropharynx, nasopharynx, and pharynx demonstrate no mucosal lesions. The vocal cords, false vocal cords, pyriform sinuses, epiglottis, vallecula, and tongue base all appear normal. Extramucosal spaces appear unremarkable. Glands: The parotid and submandibular glands appear normal. Thyroid gland demonstrates no significant abnormality. Miscellaneous: Visualized brain and orbits appear normal. Lung apices appear clear. Superficial soft tissues appear normal. Bones: No suspicious bony lesions. Visualized sinuses and mastoids appear unremarkable. Degenerative changes of the spine. IMPRESSION: No cause for patient's symptoms is identified. No acute findings within the neck. Approved by: Eldon Serra M.D. on 10/20/2024 at 18:48
== END ==
LOC: CT 14:55
PROVIDERS: PCP Naturopath; Referring Provider Otolaryngology; Visit Provider Otolaryngology
DX: R13.10 Dysphagia, unspecified (principal)
CPT/HCPCS: 36415; 70491; 82565; Q9967

== ENCOUNTER → 2025-04-22 08:58 | Outpatient (CLI) | payer OTHER, SELFPAY ==
[2020-11-24 16:17] VITALS: BMI 49.8
== END ==
LOC: PHYS 08:59
PROVIDERS: Family Provider Naturopath; PCP Naturopath; Referring Provider Psychiatry & Neurology Neurology; Visit Provider Psychiatry & Neurology Neurology
DX: G56.03 Carpal tunnel syndrome, bilateral upper limbs (principal); R29.898 Other symptoms and signs involving the musculoskeletal system
CPT/HCPCS: 95886; 95910

== ENCOUNTER 2025-06-14 06:36 | Day surgery (SDC) | payer OTHER, SELFPAY ==
[2020-11-24 16:17] VITALS: BMI 49.8
--- NOTE | 2025-06-13 12:39 | EKG_ITS ---
[facility] [id number] [place] [id number] Test Date: 2025-06-14 Pat Name: Nury Yoo Department: Room: Gender: Female Sap Bw Architect: : [id number] Requested By: Order Number: [id number] Reading MD: Kade Cabrera MD Measurements Intervals Benge Rate: 53 P: 48 MA: 194 QRS: -20 QRSD: 102 T: -12 QT: 424 QTc: 397 Interpretive Statements Sinus bradycardia Minimal voltage criteria for LVH, may be normal variant ( R in aVL ) Electronically Signed On 06-14-2025 16:03:31 PST by Kade Cabrera MD
[2025-06-14 07:07] VITALS: BP 143/65; PULSE 59; RESP 17; TEMP 36.4; O2SAT 96
[2025-06-14 07:09] VITALS: BP 143/65; PULSE 59; RESP 17; TEMP 36.4
--- NOTE | 2025-06-14 07:27 | PM.PREOP ---
Pre-operative Note COVID-19 COVID-19 status: Not tested Interval Note History & Physical reviewed/Exam performed by Physician: Yes Changes to H&P: No
[2025-06-14] MEDS: ACETAMINOPHEN 325 MG TABLET 975 MG PO (07:35)
[2025-06-14] MEDS: LACTATED RINGERS 1,000 ML 42 ML IV (07:35)
--- NOTE | 2025-06-14 08:12 | SUR.OPER ---
Supine on padded OR bed, head on pillow, non operative arm secured on padded arm boards at <90 degrees abduction, operative side on padded OR hand board, legs uncrossed, safety belt at thigh, tape over blanket over lower legs. All pressure points padded and protected.
[2025-06-14] MEDS: LIDOCAINE 1% (PF) 5 ML INJ (08:16)
[2025-06-14 08:39] VITALS: BP 132/69; PULSE 54; RESP 30; TEMP 36.4; O2SAT 95
[2025-06-14 08:46] VITALS: BP 132/67; PULSE 52; RESP 20; TEMP 36.1; O2SAT 94
--- NOTE | 2025-06-14 08:57 | PM.OP.1 ---
Operative Date/Time/Diagnoses Date of procedure: 06/14/25 Time of procedure: 08:00 Pre-op diagnosis: LEFT CARPAL TUNNEL RELEASE Post-op diagnosis: same Procedure & Clinicians Procedure: LEFT OPEN CARPAL TUNNEL RELEASE Same procedure(s) as scheduled: Yes Surgeon: Elisa Yoon Assisted?: Yes Director Of Medical Services: Debbi Jose Anesthesia Type: MAC +/- (local 9 cc of 1% lidocaine and 0.5% Marcaine in a 50/50 mixture) Operative Notes Findings: see below Closure Type: primary Specimen(s): none sent Applied: none Estimated Blood Loss (mL): 1 Blood products transfused: none Tourniquet time (min): 19 Procedure in detail: Preoperative diagnosis: LEFT Carpal Tunnel Syndrome Procedure performed: LEFT Carpal Tunnel Release, Open Postoperative diagnosis: Same Primary Surgeon: Elisa Yoon DO Assistnat: Erin Ortega PA-C Anesthesia: Local & MAC EBL: 1 ml Tourniquet: 19 minutes @ 200 mmHg Indication For Surgery: Patient presented with signs and symptoms of carpal tunnel syndrome.? Conservative treatment did not result in adequate symptom improvement. The risks, benefits, and alternatives were discussed. Risks include pain, bleeding, infection, damage to nearby structures, pillar pain, wound healing complications, thumb weakness, numbness, lack of symptom relief, need for further surgery, DVT, PE, stroke, and . Written consent was obtained. Operative Findings: Thickened transverse carpal ligament was released.? No carpal tunnel masses. Procedure in Detail: The patient was met in the pre-operative hold area. Consent was verified and operative extremity was signed. The patient then met with anesthesia and was brought back to the operating room. The patient was placed supine on the operating table. Anesthetic was administered. The extremity was then prepped and draped in the usual sterile fashion. A timeout was performed per protocol. All were in agreement local anesthesia was injected and we proceeded. A 3cm longitudinal incision was made in line with the ulnar border of the ring finger starting at Vidal's Cardinal line distally. This was just radial to the hook of the hamate. Sharp dissection was brought down through the palmar fascia. Retractors were placed. The transverse carpal ligament was identified and a knife was used to incise it longitudinally until fat was seen distally in the palm. Tenotomy scissors were then used to create a pocket just superficial to the transverse carpal ligament and a freer was placed. The scissors were then placed deep to the ligament to bluntly separate the contents of the canal from ligament. I then completed the release 2 cm into the antebrachial fascia. A freer elevator was used to confirm complete release both proximally and distally. The wound was then irrigated copiously and closed with 4-0 nylon in a horizontal mattress configuration. A sterile bulky dressing was applied. Complications: none Post-operative Condition: stable Disposition: PACU
[2025-06-14 09:13] VITALS: BP 145/74; PULSE 53; RESP 17; TEMP 36.7; O2SAT 94
== END 2025-06-14 09:34 | disposition home or self-care (01) ==
PROVIDERS: Family Provider Naturopath; PCP Naturopath; Referring Provider Naturopath; Visit Provider Orthopaedic Surgery
PROC: (CPT 64721; principal; 2025-06-14 07:45)
DX: G56.02 Carpal tunnel syndrome, left upper limb (principal)
CPT/HCPCS: 64721; 93005; 93010; J0689; J2704; J7120

== ENCOUNTER 2025-06-23 09:17 | Day surgery (SDC) | payer OTHER, SELFPAY ==
[2020-11-24 16:17] VITALS: BMI 49.8
[2025-06-07 12:55] VITALS: BMI 43.6
[2025-06-23 09:55] VITALS: BP 123/59; PULSE 61; RESP 12; TEMP 36.6; O2SAT 98
--- NOTE | 2025-06-23 10:20 | PM.PREOP ---
Pre-operative Note COVID-19 COVID-19 status: Not tested Interval Note History & Physical reviewed/Exam performed by Physician: Yes Changes to H&P: No
[2025-06-23] MEDS: LACTATED RINGERS 1,000 ML 42 ML IV (10:22)
[2025-06-23 10:35] VITALS: BP 123/59; PULSE 61; RESP 12; TEMP 36.6; O2SAT 98
--- NOTE | 2025-06-23 11:02 | SUR.OPER ---
Supine on padded OR bed, head on pillow, right arm secured on padded arm board at <90 degrees abduction, left arm on hand table, legs uncrossed, safety belt at thigh, tape over blanket over lower legs.
[2025-06-23] MEDS: LIDOCAINE 1% 20 ML INJ (11:13)
[2025-06-23] MEDS: BUPivacaine 0.25% (PF) 10 ML VIAL SUBCUT (11:15)
[2025-06-23 11:21] VITALS: BP 112/56; PULSE 66; RESP 14; TEMP 36.2; O2SAT 95
[2025-06-23 11:25] VITALS: BP 127/62; PULSE 57; RESP 24; O2SAT 98
[2025-06-23 11:30] VITALS: BP 134/62; PULSE 53; RESP 23; O2SAT 99
--- NOTE | 2025-06-23 11:34 | PM.OP.1 ---
Operative Date/Time/Diagnoses Date of procedure: 06/23/25 Time of procedure: 10:30 Pre-op diagnosis: right carpal tunnel syndrome Post-op diagnosis: same Procedure & Clinicians Procedure: open carpal tunnel release Same procedure(s) as scheduled: Yes Surgeon: Elisa Yoon Assisted?: Yes Body Straightener: Debbi Jose Anesthesia Type: MAC +/- Operative Notes Findings: see below Closure Type: primary Specimen(s): none sent Applied: none Estimated Blood Loss (mL): 2 Blood products transfused: none Tourniquet time (min): 14 Procedure in detail: Preoperative diagnosis: RIGHT Carpal Tunnel Syndrome Procedure performed: RIGHT Carpal Tunnel Release, Open Postoperative diagnosis: Same Primary Surgeon: Elisa Yoon, Assistnat: Debbi Jose PA-C Anesthesia: Local & MAC EBL: 1 ml Tourniquet: 14 minutes @ 200 mmHg Indication For Surgery: Patient presented with signs and symptoms of carpal tunnel syndrome.? Conservative treatment did not result in adequate symptom improvement. The risks, benefits, and alternatives were discussed. Risks include pain, bleeding, infection, damage to nearby structures, pillar pain, wound healing complications, thumb weakness, numbness, lack of symptom relief, need for further surgery, DVT, PE, stroke, and . Written consent was obtained. Operative Findings: Thickened transverse carpal ligament was released.? No carpal tunnel masses. Procedure in Detail: The patient was met in the pre-operative hold area. Consent was verified and operative extremity was signed. The patient then met with anesthesia and was brought back to the operating room. The patient was placed supine on the operating table. Anesthetic was administered. The extremity was then prepped and draped in the usual sterile fashion. A timeout was performed per protocol. All were in agreement local anesthesia was injected and we proceeded. A 3cm longitudinal incision was made in line with the ulnar border of the ring finger starting at Vidal's Cardinal line distally. This was just radial to the hook of the hamate. Sharp dissection was brought down through the palmar fascia. Retractors were placed. The transverse carpal ligament was identified and a knife was used to incise it longitudinally until fat was seen distally in the palm. Tenotomy scissors were then used to create a pocket just superficial to the transverse carpal ligament and a freer was placed. The scissors were then placed deep to the ligament to bluntly separate the contents of the canal from ligament. I then completed the release 2 cm into the antebrachial fascia. A freer elevator was used to confirm complete release both proximally and distally. The wound was then irrigated copiously and closed with 4-0 nylon in a horizontal mattress configuration. A sterile bulky dressing was applied. Complications: none Post-operative Condition: stable Disposition: PACU
== END 2025-06-23 12:00 | disposition home or self-care (01) ==
PROVIDERS: Family Provider Naturopath; PCP Naturopath; Referring Provider Orthopaedic Surgery; Visit Provider Orthopaedic Surgery
PROC: (CPT 64721; principal; 2025-06-23 10:45)
DX: G56.01 Carpal tunnel syndrome, right upper limb (principal); G47.33 Obstructive sleep apnea (adult) (pediatric); I10 Essential (primary) hypertension; E78.5 Hyperlipidemia, unspecified; E03.9 Hypothyroidism, unspecified; E66.9 Obesity, unspecified; Z68.41 Body mass index [BMI] 40.0-44.9, adult
CPT/HCPCS: 64721; J0689; J2704; J3490; J7120